=== PATIENT | male | born 1965 ===

== ENCOUNTER 2019-06-20 11:17 | Emergency (ER) | payer OTHER ==
[2019-06-20] MEDS ORDERED: Lidocaine 1% 30 ML SDV INJECT ONE (11:27)
--- NOTE | 2019-06-20 11:32 | EDM.PDOC ---
ED HPI GENERAL MEDICAL PROBLEM - General Chief Complaint: Upper Extremity Injury/Pain Stated Complaint: LEFT HAND INJURY-WORK Time Seen by Provider: 06/20/19 11:27 Source of Information: Reports: Patient History Limitations: Reports: No Limitations - History of Present Illness INITIAL COMMENTS - FREE TEXT/NARRATIVE: cut [employer]. unable flex distal index Left Finger-Middle Pain Score (Numeric/FACES): 8 - Related Data Allergies Allergy/AdvReac Type Severity Reaction Status Date / Time No Known Allergies Allergy Verified 06/20/19 11:35 Home Meds: Home Meds Empagliflozin [Jardiance] 25 mg PO DAILY 06/20/19 [History] LORazepam 1 mg PO Q4H 06/20/19 [History] Levothyroxine 125 mcg PO ACBREAKFAST 06/20/19 [History] glyBURIDE [Glyburide] 5 mg PO BID 06/20/19 [History] lisinopriL [Lisinopril] 10 mg PO DAILY 06/20/19 [History] Review of Systems - Review of Systems Review Of Systems: Comprehensive ROS is negative, except as noted in HPI. ED EXAM, GENERAL - Physical Exam Exam: See Below Exam Limited By: No Limitations General Appearance: Alert, WD/WN, Mild Distress, Other ([place]) Ears: Hearing Grossly Normal Throat/Mouth: Normal Voice, No Airway Compromise Head: Atraumatic Neck: Non-Tender, Full Range of Motion Respiratory/Chest: No Respiratory Distress Cardiovascular: Regular Rate, Rhythm GI/Abdominal: Soft, Non-Tender Extremities: Other (left index & middle unable flex distal, hurts alot) Neurological: Alert, Oriented, Normal Cognition, Normal Gait, No Motor/Sensory Deficits Psychiatric: Normal Affect, Normal Mood Skin Exam: Warm, Dry, Normal Color Lymphatic: No Adenopathy ED TRAUMA EXTREMITY PROCEDURES - Laceration/Wound Repair Left Digit - 2nd (Index) Lac/Wound Length In cm: 3 (palmar index & middle, region PIP) Appearance: Subcutaneous, Linear, Clean Distal NVT: Other (unable flex distal phalanx on index) Anesthetic Type: Local Local Anesthesia - Lidocaine (Xylocaine): 1% Plain Local Anesthetic Volume: 5cc Skin Prep: Chlorhexidine (Hibiciens) Exploration/Debridement/Repair: Wound Explored, No Foreign Material Found Closed With: Sutures Suture Size: 3-0 Suture Type: Nylon, Interrupted Sterile Dressing Applied: Provider Tetanus Status Addressed: Yes Complications: No Course - Vital Signs Last Recorded V/S: Last Vital Signs Temp 35.6 C 06/20/19 11:28 Pulse 65 06/20/19 11:28 Resp 18 06/20/19 11:28 BP 154/92 H 06/20/19 11:28 Pulse Ox 100 06/20/19 11:28 - Orders/Labs/Meds Meds: Medications Discontinued Medications Generic Name Dose Route Start Last Admin Trade Name Clifton PRN Reason Stop Dose Admin Lidocaine HCl 30 ml 06/20/19 11:27 Xylocaine-Mpf 1% INJECT 06/20/19 11:28 ONETIME ONE Departure - Departure Time of Disposition: 12:11 Disposition: Home, Self-Care 01 Condition: Good Clinical Impression: Finger laceration involving tendon Qualifiers: Encounter type: initial encounter Qualified Code(s): S61.219A - Laceration without foreign body of unspecified finger without damage to nail, initial encounter - Discharge Information Instructions: Sutured Wound Care, [id number] Forms: ED Department Discharge Additional Instructions: 1) keep wounds clean dry covered and wear splint for protection. 2) wound check Tuesday 3) suture removal 10 days 4) you have an appointment with Dr Alcaraz orthopedist in [facility] on Jul 02 at 2:20pm. call the office today/tomorrow on [phone] press "1" to setup more information. Sepsis Event Note - Focused Exam Vital Signs: Vital Signs Temp Pulse Resp BP Pulse Ox 06/20/19 11:28 35.6 C 65 18 154/92 H 100 Date Exam was Performed: 06/20/19 Time Exam was Performed: 12:11
== END 2019-06-20 12:26 | disposition home or self-care (01) ==
LOC: DL.ED 11:17
DX: S61.211A Laceration without foreign body of left index finger without damage to nail, initial encounter (principal); W26.8XXA Contact with other sharp object(s), not elsewhere classified, initial encounter; Y92.89 Other specified places as the place of occurrence of the external cause; Y99.0 Civilian activity done for income or pay
CPT/HCPCS: 12002; 99283; J2001

== ENCOUNTER 2023-12-18 03:34 | Emergency (ER) | payer SELFPAY ==
[2023-12-18 03:47] LABS: BASOPHILS PERCENT AUTO 0.4 % (0.0-1.0); EOSINOPHILS PERCENT AUTO 0.4 % (1.0-3.0); HEMATOCRIT 44.9 % (40.0-54.0); HEMOGLOBIN 16.3 g/dL (14.0-18.0); LYMPHOCYTES PERCENT AUTO 27.7 % (20.5-50.1); MEAN CORPUSCULAR HEMOGLOBIN 33.9 pg (27.0-34.0); MEAN CORPUSCULAR HGB CONC 36.3 g/dL (33.0-35.0); MEAN CORPUSCULAR VOLUME 93.3 fL (80-100); MONOCYTES PERCENT AUTO 6.1 % (2-8); NEUTROPHILS PERCENT AUTO 65.4 % (42.2-75.2); PLATELET COUNT,PLT 108 10^3/uL (150-450); RED BLOOD CELL COUNT 4.81 10^6/uL (4.6-6.2); WHITE BLOOD CELL COUNT,WBC 11.3 10^3/uL (5.0-10.0)
[2023-12-18 04:10] LABS: A/G RATIO 0.8; ALBUMIN 3.7 g/dL (3.4-5.0); ANION GAP 17.2 mEq/L (7-13); BUN/CREATININE RATIO 2.5 (No establ ref range); CALCIUM 8.5 mg/dL (8.5-10.1); CREATININE 0.79 mg/dL (0.70-1.30); EST CRCL DRUG DOSING (CG) 113.23 mL/min; MAGNESIUM 2.1 mg/dL (1.8-2.4); POTASSIUM,K 3.2 mmol/L (3.5-5.1); PROTEIN TOTAL,TP 8.2 g/dL (6.4-8.2)
[2023-12-18] MEDS: Sodium Chloride 0.9% 10 ML Syringe FLUSH PRN (04:34)
[2023-12-18] MEDS: Azithromycin 250 MG Tab PO ONE (04:37)
== END 2023-12-18 04:50 | disposition home or self-care (01) ==
LOC: DL.ED 03:34
DX: J44.1 Chronic obstructive pulmonary disease with (acute) exacerbation (principal); E11.9 Type 2 diabetes mellitus without complications; F17.210 Nicotine dependence, cigarettes, uncomplicated; E03.9 Hypothyroidism, unspecified; Z79.899 Other long term (current) drug therapy
CPT/HCPCS: 36415; 71046; 80053; 80307; 83735; 83880; 85025; 93005; 99285; A9270; 93010; 99284; J3490

== ENCOUNTER 2024-04-06 18:06 | Emergency (ER) | payer SELFPAY ==
[2024-04-06] MEDS ORDERED: Sodium Chloride 0.9% 10 ML Syringe FLUSH PRN (18:12)
[2024-04-06 18:30] LABS: BASOPHILS PERCENT AUTO 0.3 % (0.0-1.0); HEMATOCRIT 37.8 % (40.0-54.0); HEMOGLOBIN 13.5 g/dL (14.0-18.0); LYMPHOCYTES PERCENT AUTO 13.5 % (20.5-50.1); MEAN CORPUSCULAR HEMOGLOBIN 33.8 pg (27.0-34.0); MEAN CORPUSCULAR HGB CONC 35.7 g/dL (33.0-35.0); MEAN CORPUSCULAR VOLUME 94.7 fL (80-100); MONOCYTES PERCENT AUTO 15.7 % (2-8); NEUTROPHILS PERCENT AUTO 70.5 % (42.2-75.2); PLATELET COUNT,PLT 85 10^3/uL (150-450); RED BLOOD CELL COUNT 3.99 10^6/uL (4.6-6.2); WHITE BLOOD CELL COUNT,WBC 7.8 10^3/uL (5.0-10.0)
[2024-04-06 18:57] LABS: A/G RATIO 0.7; ALANINE AMINOTRANSFERASE,ALT 38 U/L (16-63); ALBUMIN 3.4 g/dL (3.4-5.0); ALKALINE PHOSPHATASE 126 U/L (46-116); ANION GAP 19.3 mEq/L (7-13); ASPARTATE AMNIOTRANSFERASE,AST 56 U/L (15-37); BILIRUBIN TOTAL 1.6 mg/dL (0.2-1.0); BLOOD UREA NITROGEN,BUN 42 mg/dL (7-18); BUN/CREATININE RATIO 14.3 (No establ ref range); CALCIUM 9.3 mg/dL (8.5-10.1); CARBON DIOXIDE,CO2 28 mmol/L (21-32); CHLORIDE,CL 92 mmol/L (98-107); CREATININE 2.94 mg/dL (0.70-1.30); GLUCOSE RANDOM 126 mg/dL (70-99); MAGNESIUM 1.2 mg/dL (1.8-2.4); SODIUM,NA 137 mmol/L (136-145); TSH ULTRASENSITIVE 8.25 uIU/mL (0.36-3.74)
[2024-04-06 18:59] LABS: C-REACTIVE PROTEIN < 0.50 ng/dL (<=0.50); ESTIMATED GFR 24 mL/min (>=60); ETHANOL BLOOD MEDICAL < 3 mg/dL (0); POTASSIUM,K 2.3 mmol/L (3.5-5.1)
[2024-04-06 19:00] LABS: LACTIC ACID 4.3 mmol/L (0.4-2.0)
[2024-04-06] MEDS: Magnesium Sulfate/Water Premix 2 GM in Premix Bag 1 BAG IV ONE (19:25)
[2024-04-06] MEDS: Potassium Chloride 20 MEQ in Premix Bag 1 BAG IV ONE (19:25)
[2024-04-06] MEDS: MVI, Adult with Vitamin K 10 ML, Folic Acid 1 MG, Thiamine 100 MG in Lactated Ringers 1... IV ONE (19:25)
[2024-04-06] MEDS ORDERED: Thiamine 200 MG/2 ML MDV IVPUSH ONE (19:32)
[2024-04-06] MEDS: Thiamine 500 MG in Sodium Chloride 0.9% 250 ML IV ONE (20:05)
[2024-04-06] MEDS: Potassium Chloride 10 MEQ Tab.ER PO ONE (20:08)
[2024-04-06] MEDS ORDERED: Sodium Chloride 0.9% 1,000 ML IV ONE ×2 (20:18→20:41)
== END 2024-04-06 21:28 ==
LOC: DL.ED 18:06
DX: E51.2 Wernicke's encephalopathy (principal); E11.9 Type 2 diabetes mellitus without complications; E03.9 Hypothyroidism, unspecified; Z96.659 Presence of unspecified artificial knee joint; Z79.2 Long term (current) use of antibiotics; Z79.890 Hormone replacement therapy; Z79.84 Long term (current) use of oral hypoglycemic drugs; Z79.899 Other long term (current) drug therapy
CPT/HCPCS: 36415; 70450; 80053; 80307; 82140; 83605; 83735; 84100; 84443; 85025; 86140; 96365; 96366; 96368; 99285; A9270; J3411; J3475; J3480; J7050; J7120; 82947; J3490